=== PATIENT | male | born 1980 | race African-American/Black ===

== ENCOUNTER 2018-07-21 04:47 | Emergency (ER) | payer OTHER ==
[~2018-07-21] VITALS: Ht 175.3 cm; Wt 227.0 kg
[~2018-07-21 04:47] MED LIST: HYDROXYZINE; LEVOTHYROXINE
[2018-07-21] MEDS ORDERED: LIDOCAINE HCL/PF 1% 10 MG/ML 5ML VIAL IJ ONE (06:45)
[2018-07-21] MEDS ORDERED: BACITRACIN ZINC OINT UDPKT TOP ONE (06:45)
[2018-07-21 07:44] VITALS: BP 147/55
== END 2018-07-21 07:46 | disposition home or self-care (01) ==
LOC: ER 04:47
DX: S91.202A Unspecified open wound of left great toe with damage to nail, initial encounter (principal); X58.XXXA Exposure to other specified factors, initial encounter; Y93.89 Activity, other specified; Y92.89 Other specified places as the place of occurrence of the external cause
CPT/HCPCS: 11730; 82962; 99283; J3490; X7700; Z7610

== ENCOUNTER 2019-02-15 17:33 | Emergency (ER) | payer OTHER ==
[~2019-02-15] VITALS: Ht 175.3 cm; Wt 227.0 kg
[2019-02-15] MEDS ORDERED: HYDROCODONE/ACETAMINOPHEN 5/325MG TABLET PO ONE (22:45)
[2019-02-16 00:31] VITALS: BP 141/98
== END 2019-02-16 00:34 | disposition home or self-care (01) ==
LOC: ER 17:33
DX: M54.6 Pain in thoracic spine (principal); M41.9 Scoliosis, unspecified; E66.01 Morbid (severe) obesity due to excess calories; E03.9 Hypothyroidism, unspecified; Z68.45 Body mass index [BMI] 70 or greater, adult; V43.62XA Car passenger injured in collision with other type car in traffic accident, initial encounter; Y93.89 Activity, other specified; Y92.488 Other paved roadways as the place of occurrence of the external cause
CPT/HCPCS: 71045; 99283

== ENCOUNTER 2023-11-15 23:24 | Emergency (ER) | payer OTHER ==
[~2023-11-15] VITALS: Ht 177.8 cm; Wt 260.0 kg
[2023-11-15 23:38] VITALS: BP 155/89; PULSE 95; RESP 18; TEMP 98.4; O2SAT 95
[2023-11-16 00:10] LABS: BASOPHILS % 0.4 % (0.0-2.0); EOSINOPHILS % 1.5 % (0.0-5.0); HEMATOCRIT. 44.9 % (42.0-52.0); HEMOGLOBIN. 14.4 g/dL (14.0-18.0); LYMPHOCYTES % 15.9 % (20.0-50.0); MEAN CORPUSCULAR HEMOGLOBIN 27.5 pg (28.0-32.0); MEAN CORPUSCULAR HGB CONC 32.2 g/dL (31.0-37.0); MEAN CORPUSCULAR VOLUME 85.4 fL (80.0-94.0); MONOCYTES % 8.2 % (2.0-8.0); PLATELET 319 x1000/uL (130-400); RED BLOOD CELL COUNT 5.26 mill/uL (4.7-6.1); RED CELL DISTRIBUTION WIDTH 17.8 % (11.6-14.6); WHITE BLOOD COUNT 8.5 x1000/uL (4.5-11.0)
[2023-11-16 00:23] LABS: ALANINE AMINOTRANSFERASE 30 IU/L (10-49); ALBUMIN 4.1 g/dL (3.2-4.8); ASPARTATE AMINOTRANSFERASE 33 IU/L (<34); BILIRUBIN TOTAL 0.5 mg/dL (0.1-1.0); CALCIUM 8.7 mg/dL (8.7-10.4); CARBON DIOXIDE 30 mEq/L (21-32); CHLORIDE 102 mEq/L (98-107); CREATININE 1.1 mg/dL (0.6-1.3); GLUCOSE 121 mg/dL (70-105); POTASSIUM 3.8 mEq/L (3.5-5.1); PROTEIN TOTAL 7.6 g/dL (6.0-8.3); SODIUM 138 mEq/L (136-145); TROPONIN I HIGH SENSITIVITY 6 ng/L (3.0-53); UREA NITROGEN BLOOD 7 mg/dL (9-23)
[2023-11-16 00:39] LABS: CLARITY URINE CLEAR (CLEAR); COLOR URINE YELLOW (YELLOW); GLUCOSE URINE NEGATIVE (NEGATIVE); KETONES URINE TRACE (NEGATIVE); LEUKOCYTE ESTERASE URINE TRACE (NEGATIVE); NITRITE URINE NEGATIVE (NEGATIVE); OCCULT BLOOD URINE NEGATIVE (NEGATIVE); PH URINE 8.5 (4.5-8.0); PROTEIN URINE TRACE (NEGATIVE); SPECIFIC GRAVITY URINE 1.023 (1.005-1.030)
[2023-11-16 03:09] LABS: BACTERIA URINE NONE SEEN; RBC URINE 0-2 /hpf (0-2); SQUAMOUS EPITHELIAL CELL URINE FEW /lpf (RARE/1+); WBC URINE 0-2 /hpf (0-2)
== END 2023-11-16 04:20 | disposition home or self-care (01) ==
LOC: ER 11-16 00:28
DX: I87.2 Venous insufficiency (chronic) (peripheral) (principal); R60.0 Localized edema; I10 Essential (primary) hypertension
CPT/HCPCS: 36415; 71045; 80053; 81003; 83880; 84484; 85025; 93005; 93970; 99285

== ENCOUNTER 2023-11-18 05:44 | Emergency (ER) | payer MEDICAID, OTHER ==
[~2023-11-18] VITALS: Ht 177.8 cm; Wt 260.0 kg
[2023-11-18 05:51] VITALS: BP 172/91; TEMP 98.2; O2SAT 98
[2023-11-18 05:52] VITALS: PULSE 97; RESP 16
[2023-11-18] MEDS ORDERED: POLY10DR EACHEYE (09:52)
== END 2023-11-18 10:05 | disposition home or self-care (01) ==
LOC: ER 06:18
DX: J02.9 Acute pharyngitis, unspecified (principal)
CPT/HCPCS: 87070; 87430; 99283

== ENCOUNTER 2024-01-07 23:56 | Emergency (ER) | payer MEDICAID ==
[~2024-01-07] VITALS: Ht 177.8 cm; Wt 272.0 kg
[~2024-01-07 23:56] MED LIST changes: +AMLO10TA80 PO; +AMOX1TAB16 MT; -LEVOTHYROXINE; +LEVOTHYROXINE PO; +P20 MT; +POLY10DR EACHEYE; +TOPUD PO
[2024-01-08 00:37] VITALS: O2SAT 95
[2024-01-08 00:57] LABS: CLARITY URINE TURBID (CLEAR); COLOR URINE DARK YELLOW (YELLOW); GLUCOSE URINE NEGATIVE (NEGATIVE); KETONES URINE 1+ (NEGATIVE); LEUKOCYTE ESTERASE URINE 3+ (NEGATIVE); NITRITE URINE NEGATIVE (NEGATIVE); OCCULT BLOOD URINE 3+ (NEGATIVE); PH URINE 5.5 (4.5-8.0); PROTEIN URINE 2+ (NEGATIVE)
[2024-01-08 02:12] LABS: WBC URINE TNTC /hpf (0-2)
[2024-01-08 02:17] LABS: BACTERIA URINE 1+; SQUAMOUS EPITHELIAL CELL URINE FEW /lpf (RARE/1+)
[2024-01-08 06:20] LABS: BASOPHILS % 0.9 % (0.0-2.0); EOSINOPHILS % 0.7 % (0.0-5.0); HEMATOCRIT. 43.3 % (42.0-52.0); HEMOGLOBIN. 14.1 g/dL (14.0-18.0); LYMPHOCYTES % 22.1 % (20.0-50.0); MEAN CORPUSCULAR HEMOGLOBIN 27.7 pg (28.0-32.0); MEAN CORPUSCULAR HGB CONC 32.6 g/dL (31.0-37.0); MEAN CORPUSCULAR VOLUME 85.2 fL (80.0-94.0); MEAN PLATELET VOLUME 8.2 fl (7.4-10.4); MONOCYTES % 7.1 % (2.0-8.0); NEUTROPHILS % 69.2 % (40.0-76.0); PLATELET 348 x1000/uL (130-400); RED BLOOD CELL COUNT 5.08 mill/uL (4.7-6.1); RED CELL DISTRIBUTION WIDTH 17.8 % (11.6-14.6); WHITE BLOOD COUNT 8.2 x1000/uL (4.5-11.0)
[2024-01-08 06:42] LABS: PROTHROMBIN TIME 11.1 sec (9.6-11.0)
[2024-01-08 06:54] LABS: ALANINE AMINOTRANSFERASE 26 IU/L (10-49); ALBUMIN 4.4 g/dL (3.2-4.8); ASPARTATE AMINOTRANSFERASE 31 IU/L (<34); BILIRUBIN TOTAL 0.6 mg/dL (0.1-1.0); CALCIUM 9.1 mg/dL (8.7-10.4); CARBON DIOXIDE 26 mEq/L (21-32); CHLORIDE 102 mEq/L (98-107); GLUCOSE 89 mg/dL (70-105); POTASSIUM 3.8 mEq/L (3.5-5.1); SODIUM 134 mEq/L (136-145); UREA NITROGEN BLOOD 11 mg/dL (9-23)
[2024-01-08] MEDS: CEFTRIAXONE 1GM/50ML 50 ML IV ONE (07:05)
[2024-01-08 07:19] LABS: CREATININE 1.4 mg/dL (0.6-1.3)
[2024-01-08] MEDS ORDERED: CEPH500C2 PO (07:35)
[2024-01-08 08:06] VITALS: BP 144/92; PULSE 100; RESP 18; TEMP 98
== END 2024-01-08 08:13 | disposition home or self-care (01) ==
LOC: ER 01-08 00:10
DX: N39.0 Urinary tract infection, site not specified (principal); R19.5 Other fecal abnormalities
CPT/HCPCS: 80053; 81003; 85025; 85610; 86850; 86900; 86901; 87086; 87186; 87077; 36415; 96365; 99284; J0696; Z7610

== ENCOUNTER 2024-06-13 02:41 | Emergency (ER) | payer MEDICAID ==
[~2024-06-13] VITALS: Ht 177.8 cm; Wt 263.0 kg
[~2024-06-13 02:41] MED LIST changes: +CEPH500C2 PO
[2024-06-13 02:53] VITALS: O2SAT 97
[2024-06-13 02:54] VITALS: BP 124/71; PULSE 96; RESP 20; TEMP 98.8; O2SAT 100
[2024-06-13 04:04] LABS: BASOPHILS % 0.8 % (0.0-2.0); EOSINOPHILS % 1.4 % (0.0-5.0); HEMATOCRIT. 48.5 % (42.0-52.0); HEMOGLOBIN. 15.7 g/dL (14.0-18.0); LYMPHOCYTES % 18.3 % (20.0-50.0); MEAN CORPUSCULAR HEMOGLOBIN 28.5 pg (28.0-32.0); MEAN CORPUSCULAR HGB CONC 32.3 g/dL (31.0-37.0); MEAN CORPUSCULAR VOLUME 88.2 fL (80.0-94.0); MEAN PLATELET VOLUME 8.3 fl (7.4-10.4); MONOCYTES % 7.1 % (2.0-8.0); NEUTROPHILS % 72.4 % (40.0-76.0); PLATELET 297 x1000/uL (130-400); RED CELL DISTRIBUTION WIDTH 17.6 % (11.6-14.6)
[2024-06-13 04:11] LABS: CHLORIDE 105 mEq/L (98-107); POTASSIUM 3.8 mEq/L (3.5-5.1); SODIUM 138 mEq/L (136-145)
[2024-06-13 04:12] LABS: CARBON DIOXIDE 29 mEq/L (21-32)
[2024-06-13 04:13] LABS: CALCIUM 8.6 mg/dL (8.7-10.4)
[2024-06-13 04:17] LABS: CREATININE 1.3 mg/dL (0.6-1.3); GLUCOSE 135 mg/dL (70-105)
[2024-06-13 04:19] LABS: UREA NITROGEN BLOOD < 5 mg/dL (9-23)
[2024-06-13] MEDS ORDERED: HYDR453.3 TP (04:25)
== END 2024-06-13 04:40 | disposition home or self-care (01) ==
LOC: ER 02:41
DX: R21 Rash and other nonspecific skin eruption (principal); Z79.899 Other long term (current) drug therapy
CPT/HCPCS: 36415; 80048; 85025; 99283